=== PATIENT | male | born 1935 | race Two or more races ===

== ENCOUNTER 2019-01-26 08:49 | Emergency (ER) | payer OTHER ==
[~2019-01-26] VITALS: Ht 167.6 cm; Wt 81.6 kg
[2019-01-26 09:00] VITALS: BP 142/67
[2019-01-26 10:01] LABS: Basophils # (auto) 0.1 uL; Basophils % (auto) 1.7 % (0.0-2.0); Eosinophils # (auto) 0.1 uL; Eosinophils % (auto) 1.2 % (0.0-7.0); Hemoglobin 13.3 g/dL (13.5-17.5); Lymphocytes % (auto) 21.2 % (10.0-50.0); Mean Corpuscular Hemoglobin 30.8 pg (28.0-32.0); Mean Corpuscular Hgb Conc. 34.2 g/dL (32.0-36.0); Mean Corpuscular Volume 90.1 fL (80.0-100.0); Monocytes # (auto) 0.4 uL; Neutrophils # (auto) 3.3 uL; Neutrophils % (auto) 67.9 % (37.0-80.0); Platelet Count (auto) 217 10^3/uL (140-450); Red Blood Cells 4.33 10^6/uL (4.5-5.90); Red Cell Distribution Width 13.9 % (11.8-14.3); White Blood Cell 4.8 10^3/uL (4.4-10.8)
[2019-01-26 10:16] LABS: Albumin 3.1 g/dL (3.4-5.0); BUN/Creatinine Ratio 20.9; Calcium 8.1 mg/dL (8.5-10.1); Magnesium 2.4 mg/dL (1.6-2.6); Potassium 3.7 mmol/L (3.5-5.1)
[2019-01-26 10:23] LABS: Bilirubin, Total 0.3 mg/dL (0.2-1.0); Total Protein 6.1 g/dL (6.4-8.2)
== END 2019-01-26 12:18 | disposition home or self-care (01) ==
LOC: ER 08:49 → EDBD 08:49 → ER 12:10
DX: K05.10 Chronic gingivitis, plaque induced (principal)
CPT/HCPCS: 36415; 71045; 80053; 83735; 84484; 85025; 93005; 94761

== ENCOUNTER 2020-03-07 13:36 | Emergency (ER) | payer OTHER ==
[~2020-03-07] VITALS: Ht 170.2 cm; Wt 78.0 kg
[2020-03-07 15:37] LABS: Basophils # (auto) 0 10 ^3/uL (0-0.2); Basophils % (auto) 0.8 % (0.0-2.0); Eosinophils # (auto) 0.2 10 ^3/uL (0-0.8); Eosinophils % (auto) 2.9 % (0.0-7.0); Hematocrit 41.9 % (41.0-53.0); Lymphocytes # (auto) 1.9 10 ^3/uL (0.4-5.4); Lymphocytes % (auto) 33.8 % (10.0-50.0); Mean Corpuscular Hemoglobin 30.7 pg (28.0-32.0); Mean Corpuscular Hgb Conc. 33.3 g/dL (32.0-36.0); Mean Corpuscular Volume 92.3 fL (80.0-100.0); Monocytes # (auto) 0.5 10 ^3/uL (0-1.3); Monocytes % (auto) 8.2 % (0.0-12.0); Neutrophils # (auto) 3.1 10 ^3/uL (1.6-8.6); Neutrophils % (auto) 54.3 % (37.0-80.0); Nucleated Red Blood Cells % 0.1 %; Platelet Count (auto) 207 10^3/uL (140-450); Red Blood Cells 4.54 10^6/uL (4.5-5.90); White Blood Cell 5.7 10^3/uL (4.4-10.8)
[2020-03-07 15:58] LABS: Alanine Aminotransferase 19 U/L (16-61); Albumin 4.1 g/dL (3.4-5.0); Anion Gap 4 (5-15); Blood Urea Nitrogen 19 mg/dL (7-18); Carbon Dioxide 30 mmol/L (21-32); Chloride 105 mmol/L (98-107); Glucose 79 mg/dL (74-106); Potassium 3.9 mmol/L (3.5-5.1); Sodium 139 mmol/L (136-145)
[2020-03-07 16:03] LABS: Alkaline Phosphatase 52 U/L (45-117); Aspartate Aminotransferase 17 U/L (15-37); BUN/Creatinine Ratio 18.6; Bilirubin, Total 0.7 mg/dL (0.2-1.0); GFR African American 90 mL/min; GFR Non-African American 74 mL/min; Total Protein 7.4 g/dL (6.4-8.2)
[2020-03-07 16:20] VITALS: BP 152/54
== END 2020-03-07 16:23 | disposition home or self-care (01) ==
LOC: ER 13:36
DX: M19.012 Primary osteoarthritis, left shoulder (principal)
CPT/HCPCS: 36415; 73060; 80053; 84484; 85025

== ENCOUNTER 2021-10-23 15:25 | Emergency (ER) | payer OTHER ==
[~2021-10-23] VITALS: Ht 170.2 cm; Wt 77.1 kg
[2021-10-23 16:53] LABS: Basophils # (auto) 0 10 ^3/uL (0-0.2); Basophils % (auto) 0.9 % (0.0-2.0); Eosinophils # (auto) 0.1 10 ^3/uL (0-0.8); Eosinophils % (auto) 1.5 % (0.0-7.0); Hematocrit 39.3 % (41.0-53.0); Hemoglobin 13.6 g/dL (13.5-17.5); Lymphocytes # (auto) 1.8 10 ^3/uL (0.4-5.4); Lymphocytes % (auto) 33.2 % (10.0-50.0); Mean Corpuscular Hemoglobin 30.3 pg (28.0-32.0); Mean Corpuscular Hgb Conc. 34.6 g/dL (32.0-36.0); Mean Corpuscular Volume 87.6 fL (80.0-100.0); Monocytes # (auto) 0.4 10 ^3/uL (0-1.3); Monocytes % (auto) 7.1 % (0.0-12.0); Neutrophils # (auto) 3.1 10 ^3/uL (1.6-8.6); Neutrophils % (auto) 57.3 % (37.0-80.0); Nucleated Red Blood Cells % 0.1 %; Red Blood Cells 4.48 10^6/uL (4.5-5.90); Red Cell Distribution Width 13.7 % (11.8-14.3); White Blood Cell 5.4 10^3/uL (4.4-10.8)
[2021-10-23 17:07] LABS: Albumin 3.6 g/dL (3.4-5.0); Potassium 3.4 mmol/L (3.5-5.1)
[2021-10-23 17:09] LABS: BUN/Creatinine Ratio 18.4; Bilirubin, Total 0.5 mg/dL (0.2-1.0); Total Protein 6.9 g/dL (6.4-8.2)
[2021-10-23] MEDS ORDERED: cloNIDine HCL 0.1 MG TAB PO ONE (18:00)
[2021-10-23] MEDS ORDERED: POTASSIUM EFFERVESENT TAB 25 MEQ PO ONE (18:00)
[2021-10-23 18:47] LABS: Urine Bacteria NONE SEEN /hpf (None Seen); Urine Blood Negative /uL (Negative); Urine Mucus FEW (None Seen); Urine Specific Gravity 1.021 (1.001-1.035); Urine WBC <1 /hpf (0 - 3)
[2021-10-23 19:05] VITALS: BP 140/69
== END 2021-10-23 19:40 | disposition home or self-care (01) ==
LOC: EDBD 15:25 → ER 15:25
DX: R53.1 Weakness (principal); I10 Essential (primary) hypertension; E87.6 Hypokalemia
CPT/HCPCS: 36415; 71045; 80053; 81001; 83880; 84484; 85025; 93005

== ENCOUNTER 2023-03-11 00:23 | Inpatient (IN) | payer OTHER ==
[~2023-03-11] VITALS: Ht 170.2 cm; Wt 65.0 kg
[2023-03-11 00:46] LABS: Basophils # (auto) 0 10 ^3/uL (0-0.2); Basophils % (auto) 0.5 % (0.0-2.0); Eosinophils # (auto) 0.1 10 ^3/uL (0-0.8); Eosinophils % (auto) 1.1 % (0.0-7.0); Hematocrit 39.3 % (41.0-53.0); Hemoglobin 13.5 g/dL (13.5-17.5); Lymphocytes # (auto) 2.2 10 ^3/uL (0.4-5.4); Lymphocytes % (auto) 38.6 % (10.0-50.0); Mean Corpuscular Hgb Conc. 34.4 g/dL (32.0-36.0); Mean Corpuscular Volume 90.1 fL (80.0-100.0); Monocytes # (auto) 0.6 10 ^3/uL (0-1.3); Monocytes % (auto) 9.9 % (0.0-12.0); Neutrophils # (auto) 2.8 10 ^3/uL (1.6-8.6); Neutrophils % (auto) 49.9 % (37.0-80.0); Nucleated Red Blood Cells % 0.2 %; Red Blood Cells 4.36 10^6/uL (4.5-5.90); Red Cell Distribution Width 14.1 % (11.8-14.3); White Blood Cell 5.7 10^3/uL (4.4-10.8)
[2023-03-11 01:00] VITALS: PULSE 67; RESP 12; O2SAT 97
[2023-03-11 01:09] LABS: INR 1.04 (0.9-1.15); Partial Thromboplastin Time 28.8 SEC (24.5-34.5); Prothrombin Time 10.9 sec (9.3-11.8)
[2023-03-11 01:18] LABS: Alanine Aminotransferase 17 U/L (7-40); Alkaline Phosphatase 61 U/L (46-116); Anion Gap 4 (5-15); Aspartate Aminotransferase 16 U/L (13-40); BUN/Creatinine Ratio 13.4 (10.0-20.0); Blood Urea Nitrogen 15 mg/dL (9-23); Calcium 9.2 mg/dL (8.7-10.4); Carbon Dioxide 28 mmol/L (20-30); Chloride 104 mmol/L (98-107); Glucose 102 mg/dL (74-106); Potassium 4.7 mmol/L (3.5-5.1); Sodium 136 mmol/L (136-145)
[2023-03-11 01:19] LABS: Albumin 4.1 g/dL (3.2-4.8); Bilirubin, Total 0.6 mg/dL (0.2-1.0); Total Protein 6.9 g/dL (5.7-8.2)
[2023-03-11] MEDS ORDERED: LIDOCAINE W/ EPINEPHRINE 2% INJ 20ML VIAL IJ ONE (03:45)
[2023-03-11] MEDS ORDERED: IOHEXOL 350 MG/ML 100ML IJ ONE (03:45)
[2023-03-11 04:04] LABS: Urine Bacteria None Seen /hpf (None Seen)
[2023-03-11 05:12] LABS: Urine Blood Normal /uL (Negative); Urine Clarity Clear (Clear); Urine Color Yellow (Yellow); Urine Protein, UAD Trace (Negative); Urine Specific Gravity 1.005 (1.001-1.035); Urine Urobilinogen Normal (Negative); Urine WBC 0-1 /hpf (0 - 3)
[2023-03-11 05:13] LABS: Urine Mucus MODERATE (None Seen)
[2023-03-11] MEDS ORDERED: ACETAMINOPHEN 325 MG TAB PO PRN (05:45)
[2023-03-11] MEDS ORDERED: ONDANSETRON HCL 4 MG/2 ML VIAL IV PRN (05:45)
[2023-03-11] MEDS ORDERED: DOCUSATE SOD 100 MG CAP PO PRN (05:45)
[2023-03-11] MEDS ORDERED: HYDROcodone-ACET 5/325MG TAB PO PRN (05:45)
[2023-03-11] MEDS ORDERED: hydrALAZINE HCL 20 MG/ML VL IV PRN (05:45)
[2023-03-11] MEDS: SODIUM CHLOR 0.9% PF (SALINE LOCK) 10ML VIAL/SYR IV SCH ×3 (06:18→21:54)
[2023-03-11 07:09] LABS: Basophils # (auto) 0 10 ^3/uL (0-0.2); Basophils % (auto) 0.8 % (0.0-2.0); Eosinophils # (auto) 0 10 ^3/uL (0-0.8); Eosinophils % (auto) 0.9 % (0.0-7.0); Hematocrit 37.3 % (41.0-53.0); Hemoglobin 13.2 g/dL (13.5-17.5); Lymphocytes # (auto) 1.7 10 ^3/uL (0.4-5.4); Lymphocytes % (auto) 31.6 % (10.0-50.0); Mean Corpuscular Hemoglobin 31.4 pg (28.0-32.0); Mean Corpuscular Hgb Conc. 35.3 g/dL (32.0-36.0); Monocytes # (auto) 0.4 10 ^3/uL (0-1.3); Monocytes % (auto) 7.2 % (0.0-12.0); Neutrophils # (auto) 3.1 10 ^3/uL (1.6-8.6); Neutrophils % (auto) 59.5 % (37.0-80.0); Nucleated Red Blood Cells % 0.2 %; Red Cell Distribution Width 14.4 % (11.8-14.3); White Blood Cell 5.3 10^3/uL (4.4-10.8)
[2023-03-11] MEDS ORDERED: NITROGLYCERIN 0.4 MG SL TAB SL PRN (07:15)
[2023-03-11] MEDS ORDERED: MORPHINE SULFATE INJ 2 MG/ml SYRG IV PRN (07:15)
[2023-03-11 07:25] VITALS: PULSE 80; RESP 16; O2SAT 92
[2023-03-11 08:04] LABS: Alanine Aminotransferase 14 U/L (7-40); Alkaline Phosphatase 53 U/L (46-116); Aspartate Aminotransferase 16 U/L (13-40); Blood Urea Nitrogen 12 mg/dL (9-23); Calcium 8.8 mg/dL (8.5-10.1); Carbon Dioxide 25 mmol/L (20-30); Glucose 87 mg/dL (74-106)
[2023-03-11 08:05] LABS: Bilirubin, Total 0.7 mg/dL (0.2-1.0); Total Protein 6.5 g/dL (5.7-8.2)
[2023-03-11 08:42] LABS: Anion Gap 6 (5-15); Chloride 106 mmol/L (98-107); Potassium 3.9 mmol/L (3.5-5.1); Sodium 137 mmol/L (136-145)
[2023-03-11] MEDS ORDERED: FAMOTIDINE (10MG/ML) 2ML VL IV SCH ×2 (09:45→10:00)
[2023-03-11] MEDS: FAMOTIDINE (10MG/ML) 2ML VL IV SCH (12:05)
[2023-03-11] MEDS: APIXABAN 2.5 MG TAB PO SCH ×2 (12:05→21:54)
[2023-03-11 19:20] VITALS: PULSE 83; RESP 19; O2SAT 98
[2023-03-11 22:07] VITALS: PULSE 72
[2023-03-11 22:20] VITALS: BP 163/74; PULSE 70; RESP 16; TEMP 98.6; O2SAT 96
[2023-03-11 22:36] VITALS: PULSE 70; RESP 16; O2SAT 96
[2023-03-11] MEDS ORDERED: AMIO200T13 PO (22:39)
[2023-03-11] MEDS ORDERED: POTA10TA51 PO (22:39)
[2023-03-11] MEDS ORDERED: APIX5TAB PO (22:39)
[2023-03-11] MEDS ORDERED: FUR20T PO (22:39)
[2023-03-11] MEDS ORDERED: ATOR40TA52 PO (22:39)
[2023-03-11] MEDS ORDERED: METO25TA93 PO (22:39)
[2023-03-12] VITALS (10 sets, daily range): BP systolic 104–151; BP diastolic 8–81; PULSE 72–97; RESP 14–18; TEMP 98.2–99.6; O2SAT 97–100
[2023-03-12 05:47] LABS: Basophils # (auto) 0 10 ^3/uL (0-0.2); Basophils % (auto) 0.5 % (0.0-2.0); Eosinophils # (auto) 0.1 10 ^3/uL (0-0.8); Eosinophils % (auto) 1.7 % (0.0-7.0); Hematocrit 42.7 % (41.0-53.0); Hemoglobin 14.8 g/dL (13.5-17.5); Lymphocytes % (auto) 32.6 % (10.0-50.0); Mean Corpuscular Hemoglobin 31.2 pg (28.0-32.0); Mean Corpuscular Hgb Conc. 34.7 g/dL (32.0-36.0); Mean Corpuscular Volume 89.9 fL (80.0-100.0); Monocytes # (auto) 0.6 10 ^3/uL (0-1.3); Monocytes % (auto) 9.9 % (0.0-12.0); Neutrophils # (auto) 3.4 10 ^3/uL (1.6-8.6); Neutrophils % (auto) 55.3 % (37.0-80.0); Red Blood Cells 4.75 10^6/uL (4.5-5.90); Red Cell Distribution Width 14.1 % (11.8-14.3); White Blood Cell 6.2 10^3/uL (4.4-10.8)
[2023-03-12 06:06] LABS: Alanine Aminotransferase 15 U/L (7-40); Alkaline Phosphatase 64 U/L (46-116); Anion Gap 7 (5-15); BUN/Creatinine Ratio 11.3 (10.0-20.0); Blood Urea Nitrogen 11 mg/dL (9-23); Calcium 9.5 mg/dL (8.7-10.4); Carbon Dioxide 26 mmol/L (20-30); Chloride 106 mmol/L (98-107); Glucose 91 mg/dL (74-106); Sodium 139 mmol/L (136-145)
[2023-03-12 06:08] LABS: Albumin 4.2 g/dL (3.2-4.8); Aspartate Aminotransferase 17 U/L (13-40); Bilirubin, Total 0.7 mg/dL (0.2-1.0); Total Protein 7.1 g/dL (5.7-8.2)
[2023-03-12] MEDS: SODIUM CHLOR 0.9% PF (SALINE LOCK) 10ML VIAL/SYR IV SCH ×3 (06:27→22:33)
[2023-03-12] MEDS: APIXABAN 2.5 MG TAB PO SCH ×2 (09:44→22:32)
[2023-03-12] MEDS: FAMOTIDINE (10MG/ML) 2ML VL IV SCH (09:45)
[2023-03-12] MEDS ORDERED: FAMOTIDINE (10MG/ML) 2ML VL IV SCH (10:00)
[2023-03-12 13:51] LABS: COVID19 ANTIGEN SOFIA FIA NEGATIVE (NEGATIVE)
[2023-03-13] VITALS (8 sets, daily range): BP systolic 111–138; BP diastolic 65–76; PULSE 77–86; RESP 17–19; TEMP 98–99.3; O2SAT 96–98
[2023-03-13] MEDS: SODIUM CHLOR 0.9% PF (SALINE LOCK) 10ML VIAL/SYR IV SCH ×3 (05:57→21:21)
[2023-03-13] MEDS: FAMOTIDINE (10MG/ML) 2ML VL IV SCH (09:24)
[2023-03-13] MEDS: APIXABAN 2.5 MG TAB PO SCH ×2 (09:24→21:21)
[2023-03-14 05:00] VITALS: BP 129/75; PULSE 80; RESP 16; TEMP 99; O2SAT 98
[2023-03-14] MEDS: SODIUM CHLOR 0.9% PF (SALINE LOCK) 10ML VIAL/SYR IV SCH ×2 (05:50→14:00)
[2023-03-14 08:00] VITALS: PULSE 81
[2023-03-14 09:00] VITALS: BP 107/53; PULSE 86; RESP 18; TEMP 97.8; O2SAT 97
[2023-03-14] MEDS: APIXABAN 2.5 MG TAB PO SCH (09:28)
[2023-03-14] MEDS: FAMOTIDINE (10MG/ML) 2ML VL IV SCH (09:28)
[2023-03-14 13:00] VITALS: BP 123/72; PULSE 81; RESP 18; TEMP 99.7; O2SAT 95
== END 2023-03-14 14:30 | disposition left against medical advice (07) | DRG 581 ==
LOC: ER 00:23 → EDBD 00:23 → TELE 07:10 → TELE-WESTW 22:15
PROVIDERS: ADMIT Nurse Practitioner Family; ATTEND Family Medicine
PROC: 0JQ00ZZ Repair Scalp Subcutaneous Tissue and Fascia, Open Approach (ICD-10-PCS; principal; 2023-03-11)
DX: S01.81XA Laceration without foreign body of other part of head, initial encounter (principal); I10 Essential (primary) hypertension; E78.00 Pure hypercholesterolemia, unspecified; Z20.822 Contact with and (suspected) exposure to COVID-19; I71.40 Abdominal aortic aneurysm, without rupture, unspecified; W01.0XXA Fall on same level from slipping, tripping and stumbling without subsequent striking against object, initial encounter; Z53.29 Procedure and treatment not carried out because of patient's decision for other reasons; Z95.1 Presence of aortocoronary bypass graft; Y93.89 Activity, other specified; Y92.89 Other specified places as the place of occurrence of the external cause; Y99.8 Other external cause status
CPT/HCPCS: 12011; 36415; 70450; 71045; 71275; 72125; 80053; 81001; 83880; 84484; 85025; 85379; 85610; 85730; 87426; 93005; 93306; 97110; 97116; 97163; 97530; G0378; J3490